=== PATIENT | female | born 1950 | race American Indian/Alaskan Native ===

== ENCOUNTER 2016-12-13 08:48 | Outpatient (CLI) | payer MEDICARE ==
--- NOTE | 2016-12-13 10:08 | XRay Report ---
KUB. Findings: The bowel gas pattern is unremarkable. No masses, organomegaly, or significant abdominal calcifications are seen. The bony structures are unremarkable. Impression: No significant findings.
--- NOTE | 2016-12-13 10:09 | XRay Report ---
Chest 2 views. Findings: The heart is borderline in size with normal pulmonary vascularity. The lungs are clear. There is no pleural fluid. Impression: No acute findings.
== END 2016-12-13 08:49 | disposition home or self-care (01) ==
LOC: SPVIMAG 08:48
PROVIDERS: ATTEND Internal Medicine
DX: R14.2 Eructation (principal); R07.89 Other chest pain
CPT/HCPCS: 71020; 74000

== ENCOUNTER 2017-03-18 08:45 | Outpatient (CLI) | payer MEDICARE ==
--- NOTE | 2017-03-18 12:02 | Cat Scan Report ---
CT of the neck with contrast: Patient with palpable finding in the right neck. A marker was placed over the area of concern. Transverse images obtained from the base of the skull to the thoracic inlet with coronal and sagittal reformatted images. Comparison is made to a prior exam in July 2015. The nasopharynx, oropharynx, larynx, and visualized mucosal structures are unremarkable. Slightly enlarged right jugular chain lymph nodes are present as described on prior examination with the largest currently measuring 12.4 mm. No interval change identified. The right thyroid lobe appears slightly larger than the left is somewhat inhomogeneous however the entire gland is not included and the nodule described on prior study is also not included. Imaging over the area of the marker is close to the right submandibular salivary gland. The gland on the right does not appear enlarged compared to the left however there is a central 7 mm calcification. These findings however are unchanged from her prior examination. Just lateral to the salivary gland there are several small lymph nodes on the right which are not present on the left. These are also unchanged from prior examination. The largest of these is 5 mm. Impressions: 1. Chronic submandibular salivary gland calcification with several small adjacent lymph nodes consistent in location with the palpable finding. 2. Stable slightly enlarged right jugular chain lymph nodes.
== END 2017-03-18 08:46 | disposition home or self-care (01) ==
LOC: SPVIMAG 08:45
PROVIDERS: ATTEND Internal Medicine
DX: R59.9 Enlarged lymph nodes, unspecified (principal)
CPT/HCPCS: 70491; 82962; Q9967

== ENCOUNTER 2017-05-02 10:01 | Outpatient (CLI) | payer MEDICARE ==
--- NOTE | 2017-05-02 10:48 | XRay Report ---
AP AND LATERAL CERVICAL SPINE: History: Cervical pain. Normal bone mineralization. Moderate degenerative disc disease is identified at C4-5, C5-6 and C6-7. The remaining disc spaces and facet joints are within normal limits. There is no evidence for fracture, malalignment or bone lesion. IMPRESSION: Cervical spondylosis. No acute process.
== END 2017-05-02 10:02 | disposition home or self-care (01) ==
LOC: SPVIMAG 10:01
PROVIDERS: ATTEND Internal Medicine
DX: M50.321 Other cervical disc degeneration at C4-C5 level (principal); M50.322 Other cervical disc degeneration at C5-C6 level; M50.323 Other cervical disc degeneration at C6-C7 level; M47.892 Other spondylosis, cervical region
CPT/HCPCS: 72040